=== PATIENT | female | born 1990 | race Caucasian/White ===

== ENCOUNTER → 2025-06-24 | Outpatient (CLI) | payer MEDICAID, SELFPAY ==
--- NOTE | 2025-06-24 12:00 | XR_ITS ---
Examination: MRI cervical spine without intravenous contrast Date and time of exam: June 24, 2025, 1227 hrs. Indications: Neck pain radiating into the shoulders numbness in the hands one year Technique: Multiple axial and sagittal sections of the cervical spine to been obtained. T2 weighted sagittal sections, TR 3, 270, TE 117 T1-weighted sagittal sections, TR 500, TE 11 T1-weighted axial sections, TR 607, TE 12, axial sections TR 18, TE 27 and T2 weighted transverse sections, TR 3920, TE 122. Findings: Adequate alignment cervical vertebral bodies No cervical fracture No cervical disc narrowing Mild diffuse cervical disc desiccation Mild increased signal in the cervical cord C2-C3 no disc protrusion C3-C4 no disc protrusion C4-C5 2 mm central cervical disc bulge C5-C6 uncinate process hypertrophy advanced left neural foraminal stenosis C6-C7 no disc protrusion C7-T1 no disc protrusion Impression: C4-C5 2 mm central cervical disc bulge C5-C6 advanced left neural foraminal stenosis Mild increased signal in the cervical cord, seen with demyelinating disease If this is a clinical consideration suggest brain MRI follow-up pre and postcontrast, MS protocol
== END | disposition home or self-care (01) ==
PROVIDERS: PCP Physician Assistant Medical; Referring Provider Physician Assistant Medical; Visit Provider Physician Assistant Medical
DX: M50.321 Other cervical disc degeneration at C4-C5 level (principal); M48.02 Spinal stenosis, cervical region; G37.9 Demyelinating disease of central nervous system, unspecified
CPT/HCPCS: 72141

== ENCOUNTER 2025-07-14 08:10 | Day surgery (SDC) | payer MEDICAID, SELFPAY ==
--- NOTE | 2025-07-12 16:14 | ESHP_ITS ---
RE: MARNIE MARIA : 1990 DATE OF ADMISSION: 07/14/2025 HISTORY OF PRESENT ILLNESS: This patient was seen by me at the [facility] on 05/02/2023. This is a 34-year-old female who speaks very good Swedish, was seen for a ventral hernia above the umbilicus. Patient was seen by me originally on 01/31 of this year. Therefore, even though surgery was recommended, she wanted to wait. At the present time, she is experiencing pain. She notices something coming out through the abdomen just above the belly button especially when she is working out. Patient has 2 pregnancies, did not have any symptoms during the , but this mass appeared after her second child. PAST MEDICAL HISTORY: Reveals she has a history of hypothyroidism and is taking Synthroid. Past medical history revealed no significant medical illness other than seasonal allergy. HOME MEDICATIONS: Consisted of Synthroid 50 mcg tablets. PAST SURGICAL HISTORY: She denies having any surgery. PHYSICAL EXAMINATION: GENERAL: Pleasant healthy female who appeared to be in her stated age. She is about 5 foot 5 inches tall weighing 150 pounds. VITAL SIGNS: Revealed temperature of 98.4. Pulse rate was 89. BP was 118/68. HEENT: Examination of the head normal. Eyes, Ears, Nose, and Throat were normal. NECK: Normal. No thyroid enlargement was noted. CHEST: Revealed good breath sounds on both sides. HEART: Sinus rhythm with no murmurs. ABDOMEN: Showed a small ventral hernia just above the umbilicus with herniation of the omentum upon coughing. This was reducible. There is no hernia or defect at the umbilicus. IMPRESSION: 1. Ventral hernia, symptomatic. 2. Hypothyroidism. PLAN: I advised the patient to undergo repair of this ventral hernia electively. Because of the increasing symptoms, the patient is willing to have the surgery done and is scheduled on 07/14/2025. DT: 15:51:05 TT: 16:12:00 Ref: [id number] - TID: [id number]
[2025-07-13 11:06] VITALS: BMI 25.7
[2025-07-13 11:44] LABS: Basophils # (Auto) 0.0 Thou/mm3 (0.0-0.2); Basophils % (Auto) 1 % (0-2.5); Eosinophils # (Auto) 0.3 Thou/mm3 (0.0-0.5); Eosinophils % (Auto) 5 % (0-10); Hematocrit 41.5 % (36.0-46.0); Hemoglobin 14.0 g/dL (12.0-16.0); Immature Granulocytes Auto 0.01 Thou/mm3 (0.00-0.00); Lymphocytes # (Auto) 1.9 Thou/mm3 (1.0-4.8); Lymphocytes % (Auto) 33 % (10-50); Mean Corpuscular HGB Conc 33.7 g/dl (31.0-37.0); Mean Corpuscular Hemoglobin 31.3 pg (25.0-35.0); Mean Corpuscular Volume 93 fL (80-100); Monocytes # (Auto) 0.3 Thou/mm3 (0.0-0.8); Monocytes % (Auto) 6 % (0-12); Neutrophils # (Auto) 3.1 Thou/mm3 (1.8-7.7); Neutrophils % (Auto) 56 % (37-80); Nucleated Red Blood Cell # 0.00 Thou/mm3 (0.00-0.00); Nucleated Red Blood Cell % 0 /100 WBC (0); Platelet Count 237 Thou/mm3 (140-440); RDW Standard Deviation 42.8 fL (36.4-46.3); Red Blood Count 4.47 Miln/mm3 (4.00-5.20); White Blood Count 5.6 Thou/mm3 (3.6-11.0)
[2025-07-13 11:55] LABS: COVID-19 Antigen (In-House) Negative (Negative)
[2025-07-13 11:59] LABS: HCG,Qualitative Serum Negative
[2025-07-13 12:09] LABS: INR 1.0 (0.9-1.3); Partial Thromboplastin Time 29.0 Seconds (22.0-36.0); Prothrombin Time 10.3 Seconds (9.0-12.2)
[2025-07-13 12:15] LABS: Alanine Aminotransferase < 7 U/L (10-49); Albumin, Serum 5.0 gm/dL (3.5-5.0); Albumin/Globulin Ratio 2.2 (1.2-2.2); Alkaline Phosphatase 42 U/L (46-116); Anion Gap 9 (7-16); Aspartate Amino Transferase 15 U/L (0-34); BUN/Creatinine Ratio 6 Ratio (12-20); Bilirubin,Total 0.4 mg/dL (0.3-1.2); Blood Urea Nitrogen < 5 mg/dL (9-23); Calcium 9.9 mg/dL (8.3-10.6); Calcium (Corrected) 9.9 mg/dL (8.5-10.1); Carbon Dioxide 28.1 mMol/L (20.0-31.0); Chloride 104 mMol/L (98-107); Creatinine (Component) 0.8 mg/dL (0.6-1.3); Estimated Creatinine Clearance 95.6 mL/min (>60); Globulin 2.3 gm/dL (2.3-3.5); Glucose 98 mg/dL (74-106); Osmolality,Calculated 278 (275-295); Potassium 4.8 mMol/L (3.4-5.1); Sodium 141 mMol/L (136-145); Total Protein 7.3 gm/dL (5.7-8.2); eGFR > 60 See Note
[2025-07-14] VITALS (9 sets, daily range): BP systolic 101–118; BP diastolic 57–70; PULSE 57–84; RESP 12–20; TEMP 36.6–36.7; O2SAT 98–100; BMI 25.4
--- NOTE | 2025-07-14 08:42 | SUR.PREOP ---
Patient expressed gratitude for prayer before their procedure.
--- NOTE | 2025-07-14 08:42 | SUR.PREOP ---
Patient expressed gratitude for prayer before their procedure.
--- NOTE | 2025-07-14 08:49 | SUR.PREOP ---
Patient expressed gratitude for prayer before their procedure.
[2025-07-14] MEDS: RINGERS LACTATED 1000 ML 1,000 ML 20 ML IV (08:52)
--- NOTE | 2025-07-14 09:36 | SUR.PREOP ---
Patient expressed gratitude for prayer before their procedure.
--- NOTE | 2025-07-14 11:45 | SUR.OPER ---
SUPERCHARGER REPAIR SUPERVISOR Unavailable due to short staffing
--- NOTE | 2025-07-14 12:36 | PD.SUROPNT ---
Date of Procedure 07/14/25 Pre Op Diagnosis Symptomatic ventral hernia Post Op Diagnosis Same Procedure Repair of the ventral hernia with primary closure Findings Patient was found to have a 2 cm defect in the supraumbilical region containing the omentum Procedure Description After the patient was brought to the operating room endotracheal Ancef given. Abdomen was prepped with ChloraPrep solution and draped in a sterile manner. Timeout was performed. The made incision above 5 cm in length just above the umbilicus and dissected out the subcutaneous tissue. I was able to see the hernia which is coming through the fascia containing mostly omentum. This hernia was suture-ligated at the fascial level. The defect was very small and narrow and therefore I used 3 interrupted sutures of 2-0 Prolene with the knots inside. Then the subcutaneous tissue was closed with 3-0 plain and the skin was approximated with 4-0 Monocryl subcuticular stitch. Patient tolerated the procedure well. Anesthesia GETA Pathology / specimen None Estimated Blood Loss 10 Surgeon Deonna Franklin MD Surgical Staff Operation Date: 07/14/25 10:15 Case Staff Anesthesiologist: Christopher Brown
--- NOTE | 2025-07-14 12:51 | SUR.PHASEI ---
1214: Pt received in [facility] via gurney. Report from Abril DONG and Dr. White. Pt groggy. Is arousable with eye opening then drifts back to sleep. Resp even, unlabored. VS stable. Dressing to mid abdomen dry, clean, intact. No c/o pain. 1240: Pt has been resting with no complaints voiced. Resp even, unlabored. VS stable. Dressing remains dry, clean, intact. Pt states she has very little pain and is comfortable.
--- NOTE | 2025-07-14 13:07 | SUR.PHASEII ---
1255: Pt more awake, alert. Resp even, unlabored. VS stable. Dressing remains dry, clean, intact. No complaints of pain. Pt sitting up tolerating po fluids with no difficulty swallowing and no n/v.
--- NOTE | 2025-07-14 15:23 | SUR.PHASEII ---
1332: Pt fully awake, oriented x3. VS stable. Dressing to abdomen dry, clean, intact. Pt states she has very little pain and only with movement. Pt dressed and assisted to transport chair. Ambulation steady. Pt and stated understanding of discharge instructions. Pt discharged from [facility] in stable condition.
== END 2025-07-14 13:32 | disposition home or self-care (01) ==
PROVIDERS: Anesthesiology; PCP Physician Assistant Medical; Referring Provider Surgery; Visit Provider Surgery
PROC: (CPT 49591; principal; 2025-07-14 10:00)
DX: K43.9 Ventral hernia without obstruction or gangrene (principal); E03.9 Hypothyroidism, unspecified
CPT/HCPCS: 49591; 36415; 80053; 84703; 85025; 85610; 85730; 87811; A4649; J0131; J1100; J1885; J2250; J2405; J2704; J3010; J7120